=== PATIENT | female | born 1975 | race Hispanic/Latino ===

== ENCOUNTER 2018-05-18 19:23 | Emergency (ER) | payer OTHER ==
[2018-05-18] MEDS ORDERED: IPRATROPIUM/ALBUTEROL SULFATE 3 ML SOLUTION IH ONE (20:11)
[2018-05-18 20:20] LABS: BASOPHILS % (AUTO) 0.6 % (0.0-5.0); EOSINOPHILS % (AUTO) 2.1 % (0.0-8.0); HEMATOCRIT 42.3 % (36-48); LYMPHOCYTES % (AUTO) 20.4 % (21.0-51.0); MEAN CORPUSCULAR HEMOGLOBIN 33.1 pg (27.0-33.0); MEAN CORPUSCULAR HGB CONC 34.9 g/dL (32.0-36.0); MONOCYTES % (AUTO) 5.5 % (3.0-13.0); NEUTROPHILS % (AUTO) 71.4 % (40.0-77.0); NUCLEATED RED BLOOD CELLS 0.1 % (0.0-0.19); PLATELET COUNT (AUTO) 274 K/uL (130-400); RED BLOOD CELL COUNT(AUTO) 4.45 MIL/uL (4.00-5.50); RED CELL DISTRIBUTION WIDTH 12.2 % (11.0-15.5); WHITE BLOOD COUNT (AUTO) 9.4 K/uL (4.8-10.8)
[2018-05-18 20:33] LABS: CREATININE 0.8 mg/dL (0.5-1.5); POTASSIUM 3.8 mmol/L (3.5-5.1)
[2018-05-18 20:52] LABS: RAPID GROUP A STREP NEGATIVE (NEGATIVE)
[2018-05-18] MEDS ORDERED: MORPHINE SULFATE 2 MG/ML 1ML SYG ONE (20:57)
[2018-05-18] MEDS ORDERED: ONDANSETRON HCL 4 MG/2 ML VIAL ONE (20:57)
[2018-05-18 21:06] LABS: ACETONE,BLOOD NEGATIVE (NEGATIVE)
[2018-05-18] MEDS ORDERED: INSULIN HUMULIN R 100 UNIT/ML 3ML ONE (21:08)
[2018-05-18 21:12] LABS: ALANINE AMINOTRANSFERASE 31 U/L (12-78); ALBUMIN 3.1 g/dL (3.5-5.0); ASPARTATE AMINOTRANSFERASE 20 U/L (10-37); BILIRUBIN,DIRECT 0.1 mg/dL (0.0-0.3); BILIRUBIN,TOTAL 0.4 mg/dL (0.2-1.0); TOTAL PROTEIN, SERUM 7.8 g/dL (6.0-8.3)
== END 2018-05-18 22:16 | disposition home or self-care (01) ==
LOC: EDH 19:23
DX: J06.9 Acute upper respiratory infection, unspecified (principal); E11.65 Type 2 diabetes mellitus with hyperglycemia
CPT/HCPCS: 36415; 71046; 80048; 80076; 82009; 82948; 85025; 87040 ×2; 87804 ×2; 87880; 94640; 96374; 99285; J1815; J2405

== ENCOUNTER 2018-12-03 15:37 | Emergency (ER) | payer SELFPAY ==
[2018-12-03 16:02] LABS: BASOPHILS % (AUTO) 0.9 % (0.0-5.0); EOSINOPHILS % (AUTO) 3.9 % (0.0-8.0); HEMATOCRIT 40.4 % (36-48); LYMPHOCYTES % (AUTO) 23.6 % (21.0-51.0); MEAN CORPUSCULAR HGB CONC 36.7 g/dL (32.0-36.0); MEAN CORPUSCULAR VOLUME 95.5 fL (79-99); MONOCYTES % (AUTO) 6.2 % (3.0-13.0); NEUTROPHILS % (AUTO) 65.4 % (40.0-77.0); PLATELET COUNT (AUTO) 225 K/uL (130-400); RED BLOOD CELL COUNT(AUTO) 4.23 MIL/uL (4.00-5.50); WHITE BLOOD COUNT (AUTO) 7.6 K/uL (4.8-10.8)
[2018-12-03 16:21] LABS: ALBUMIN 2.8 g/dL (3.5-5.0); BILIRUBIN,TOTAL 0.4 mg/dL (0.2-1.0); CREATININE 1.1 mg/dL (0.5-1.5); POTASSIUM 3.7 mmol/L (3.5-5.1); TOTAL PROTEIN, SERUM 6.7 g/dL (6.0-8.3)
[2018-12-03] MEDS ORDERED: GABAPENTIN 300 MG CAPSULE ONE (16:27)
[2018-12-03] MEDS ORDERED: METFORMIN HCL 500 MG TABLET ONE (16:33)
== END 2018-12-03 17:03 | disposition home or self-care (01) ==
LOC: EDH 15:37
DX: E11.40 Type 2 diabetes mellitus with diabetic neuropathy, unspecified (principal); R55 Syncope and collapse
CPT/HCPCS: 36415; 80053; 84484; 85025; 93005

== ENCOUNTER 2020-02-11 16:32 | Inpatient (IN) | payer OTHER, SELFPAY ==
[~2020-02-11] VITALS: Ht 172.7 cm; Wt 148.3 kg
[2020-02-11] MEDS ORDERED: ASPIRIN 325 MG TABLET ONE (17:35)
[2020-02-11] MEDS ORDERED: LEVOFLOXACIN 500 MG/D5W 100 ML 100 ML ONE (17:35)
[2020-02-11 18:00] LABS: BASOPHILS % (AUTO) 0.2 % (0.0-5.0); EOSINOPHILS % (AUTO) 0.5 % (0.0-8.0); HEMATOCRIT 42.5 % (36-48); LYMPHOCYTES % (AUTO) 7.1 % (21.0-51.0); MEAN CORPUSCULAR HEMOGLOBIN 32.4 pg (27.0-33.0); MEAN CORPUSCULAR HGB CONC 35.1 g/dL (32.0-36.0); MEAN CORPUSCULAR VOLUME 92.4 fL (79-99); MONOCYTES % (AUTO) 4.7 % (3.0-13.0); PLATELET COUNT (AUTO) 214 K/uL (130-400); RED CELL DISTRIBUTION WIDTH 11.6 % (11.0-15.5); WHITE BLOOD COUNT (AUTO) 12.4 K/uL (4.8-10.8)
[2020-02-11] MEDS ORDERED: ACETAMINOPHEN 325 MG TAB ONE (18:05)
[2020-02-11 18:08] LABS: POTASSIUM 3.5 mmol/L (3.5-5.1)
[2020-02-11 18:12] LABS: INR 0.92 (0.85-1.15); PARTIAL THROMBOPLASTIN TIME 26.6 SEC (26.3-35.5)
[2020-02-11 18:13] LABS: ALBUMIN 3.2 g/dL (3.5-5.0); BILIRUBIN,TOTAL 0.8 mg/dL (0.2-1.0); TOTAL PROTEIN, SERUM 7.8 g/dL (6.0-8.3)
[2020-02-11 19:41] LABS: APPEARANCE,URINE Clear (CLEAR); BILIRUBIN,URINE Negative (NEGATIVE); COLOR,URINE Yellow (YELLOW); GLUCOSE, URINE (UA) >=1000 mg/dL (NEGATIVE); KETONES,URINE 15 mg/dL (NEGATIVE); LEUKOCYTE ESTERASE ,URINE Trace (NEGATIVE); NITRATE,URINE Positive (NEGATIVE); OCCULT BLOOD,URINE Negative (NEGATIVE); PROTEIN,URINE Negative (NEGATIVE)
[2020-02-11 20:01] LABS: BACTERIA,URINE Few /HPF (None Seen); MUCUS,URINE Few LPF (None Seen); SQUAMOUS EPITHELIAL CELL,UR Few /HPF (0-2)
[2020-02-11] MEDS ORDERED: INSULIN HUMULIN R 100 UNIT/ML 3ML ONE (20:22)
[2020-02-11] MEDS ORDERED: IOHEXOL-350 75 ML VIAL IV ONE (21:49)
[2020-02-11] MEDS ORDERED: IOHEXOL 350 MG/ML 100ML INFUS..BTL IV ONE (21:50)
[2020-02-11] MEDS ORDERED: ZOSYN 3.375GM+NS 50ML 50 ML IV ONE (23:39)
[2020-02-12] MEDS ORDERED: KETOROLAC TROMETHAMINE 30MG/ML ONE (01:32)
[2020-02-12] MEDS: SODIUM CHLORIDE 0.9% 1000ML 1,000 ML, 0.9 % SODIUM CHLORIDE 1,000 ML IV SCH ×2 (02:31)
[2020-02-12] MEDS ORDERED: DiphenhydrAMINE HCL 50 MG/ML VIAL IV PRN (02:45)
[2020-02-12] MEDS ORDERED: MORPHINE SULFATE 2 MG/ML 1ML SYG IV PRN (02:45)
[2020-02-12] MEDS ORDERED: MAG HYDROX/AL HYDROX/SIMETH ES 30 ML SUSP UDCUP PO PRN (02:45)
[2020-02-12] MEDS ORDERED: LACTULOSE 20 GM/30 ML UDCUP PO PRN (02:45)
[2020-02-12] MEDS ORDERED: VANCOMYCIN 1GM+NS 250ML 250 ML IV ONE (03:28)
[2020-02-12] MEDS ORDERED: CEFEPIME HCL 2 GM VIAL ONE ×2 (03:28→15:02)
[2020-02-12] MEDS ORDERED: VANCOMYCIN PROTOCOL PER PHARMACY IV SCH (04:15)
[2020-02-12] MEDS ORDERED: INSULIN GLARGINE 100 UNITS/ML 10 ML VIAL SQ ONE (04:45)
[2020-02-12 05:34] LABS: BASOPHILS % (AUTO) 0.2 % (0.0-5.0); EOSINOPHILS % (AUTO) 0.7 % (0.0-8.0); HEMATOCRIT 40.4 % (36-48); LYMPHOCYTES % (AUTO) 3.1 % (21.0-51.0); MEAN CORPUSCULAR HEMOGLOBIN 32.9 pg (27.0-33.0); MEAN CORPUSCULAR HGB CONC 34.9 g/dL (32.0-36.0); MEAN CORPUSCULAR VOLUME 94.2 fL (79-99); MONOCYTES % (AUTO) 2.8 % (3.0-13.0); NEUTROPHILS % (AUTO) 92.8 % (40.0-77.0); PLATELET COUNT (AUTO) 162 K/uL (130-400); RED BLOOD CELL COUNT(AUTO) 4.29 MIL/uL (4.00-5.50); RED CELL DISTRIBUTION WIDTH 11.7 % (11.0-15.5); WHITE BLOOD COUNT (AUTO) 12.9 K/uL (4.8-10.8)
[2020-02-12 05:55] LABS: ALBUMIN 2.6 g/dL (3.5-5.0); BILIRUBIN,TOTAL 1.1 mg/dL (0.2-1.0); CREATININE 0.9 mg/dL (0.5-1.5); MAGNESIUM 1.5 mg/dL (1.80-2.40); PHOSPHORUS 3.7 mg/dL (2.5-4.9); POTASSIUM 3.9 mmol/L (3.5-5.1); TOTAL PROTEIN, SERUM 6.7 g/dL (6.0-8.3)
[2020-02-12] MEDS ORDERED: MAGNESIUM 2GM PREMIX 50ML 50 ML IV SCH (07:45)
[2020-02-12] MEDS ORDERED: BENZONATATE 100 MG CAPSULE PO ONE ×2 (08:20→15:07)
[2020-02-12] MEDS ORDERED: FAMOTIDINE/PF 20 MG/2 ML VIAL IV ONE (08:21)
[2020-02-12] MEDS ORDERED: ENOXAPARIN SODIUM 40 MG/0.4 ML SYRINGE SQ ONE (08:21)
[2020-02-12] MEDS ORDERED: ACETAMINOPHEN 325 MG TAB ONE ×2 (08:34→15:11)
[2020-02-12] MEDS: ENOXAPARIN SODIUM 40 MG/0.4 ML SYRINGE SQ SCH (09:00)
[2020-02-12] MEDS: FAMOTIDINE/PF 20 MG/2 ML VIAL IV SCH ×2 (09:00→21:53)
[2020-02-12] MEDS: VANCOMYCIN 2.5 GM in SODIUM CHLORIDE 0.9% 500ML 500 ML IV ONE ×2 (12:45→22:52)
[2020-02-12] MEDS ORDERED: COMPOUND IV REFRIGERATED 1 EACH IVSOLN MISC PRN (13:00)
[2020-02-12] MEDS: BENZONATATE 100 MG CAPSULE PO SCH ×2 (14:00→21:52)
[2020-02-12] MEDS: CEFEPIME HCL 2 GM VIAL IVP SCH (15:00)
[2020-02-12] MEDS ORDERED: SODIUM CHLORIDE 0.9% 50 ML IV ONE (15:04)
[2020-02-12] MEDS: INSULIN LISPRO 100 UNIT/ML 3ML SQ SCH ×2 (16:30→21:55)
[2020-02-12] MEDS ORDERED: INSULIN HUMULIN R 100 UNIT/ML 3ML ONE (18:02)
[2020-02-12 19:00] VITALS: BP 124/78
[2020-02-12] MEDS ORDERED: INSULIN GLARGINE 100 UNITS/ML 10 ML VIAL SQ SCH (21:00)
[2020-02-12] MEDS ORDERED: VANCOMYCIN 1.25 GM in SODIUM CHLORIDE 0.9% 250 ML IV SCH (22:00)
[2020-02-13] MEDS: ACETAMINOPHEN 325 MG TAB PO PRN ×2 (00:07→08:15)
[2020-02-13 00:10] VITALS: BP 109/57
[2020-02-13 03:35] VITALS: BP 118/76
[2020-02-13] MEDS: CEFEPIME HCL 2 GM VIAL IVP SCH (03:43)
[2020-02-13] MEDS: INSULIN LISPRO 100 UNIT/ML 3ML SQ SCH ×7 (06:02→21:42)
[2020-02-13] MEDS: SODIUM CHLORIDE 0.9% 1000ML 1,000 ML, 0.9 % SODIUM CHLORIDE 1,000 ML IV SCH ×2 (06:09)
[2020-02-13 07:53] LABS: BASOPHILS % (AUTO) 0.2 % (0.0-5.0); EOSINOPHILS % (AUTO) 3.3 % (0.0-8.0); LYMPHOCYTES % (AUTO) 5.8 % (21.0-51.0); MEAN CORPUSCULAR HEMOGLOBIN 32.4 pg (27.0-33.0); MEAN CORPUSCULAR HGB CONC 34.6 g/dL (32.0-36.0); MEAN CORPUSCULAR VOLUME 93.7 fL (79-99); MONOCYTES % (AUTO) 5.1 % (3.0-13.0); NEUTROPHILS % (AUTO) 85.1 % (40.0-77.0); PLATELET COUNT (AUTO) 171 K/uL (130-400); RED BLOOD CELL COUNT(AUTO) 3.95 MIL/uL (4.00-5.50); RED CELL DISTRIBUTION WIDTH 11.7 % (11.0-15.5); WHITE BLOOD COUNT (AUTO) 10.6 K/uL (4.8-10.8)
[2020-02-13 08:00] VITALS: BP 127/68
[2020-02-13 08:00] LABS: HEMOGLOBIN A1C 11.5 % (4.0-6.0)
[2020-02-13 08:11] LABS: ALBUMIN 2.2 g/dL (3.5-5.0); BILIRUBIN,TOTAL 1.1 mg/dL (0.2-1.0); CREATININE 0.7 mg/dL (0.5-1.5); MAGNESIUM 1.8 mg/dL (1.80-2.40); PHOSPHORUS 1.7 mg/dL (2.5-4.9); POTASSIUM 3.4 mmol/L (3.5-5.1); TOTAL PROTEIN, SERUM 6.5 g/dL (6.0-8.3)
[2020-02-13] MEDS: ONDANSETRON HCL 4 MG/2 ML VIAL IVP PRN (08:14)
[2020-02-13 08:16] LABS: CRP QUANTITATIVE 345.1 mg/L (0.00-9.0)
[2020-02-13] MEDS: BENZONATATE 100 MG CAPSULE PO SCH ×3 (08:16→21:00)
[2020-02-13] MEDS: FAMOTIDINE/PF 20 MG/2 ML VIAL IV SCH ×2 (08:16→21:00)
[2020-02-13] MEDS: ENOXAPARIN SODIUM 40 MG/0.4 ML SYRINGE SQ SCH (08:17)
[2020-02-13] MEDS ORDERED: VANCOMYCIN 2 GM in SODIUM CHLORIDE 0.9% 500ML 500 ML IV SCH (10:23)
[2020-02-13] MEDS ORDERED: POTASSIUM CHLORIDE 10% ELIXIR 20 MEQ/15 ML UDCUP PO PRN (10:30)
[2020-02-13] MEDS ORDERED: LIDOCAINE HCL-MPF 1% 2ML VIAL IV PRN (10:30)
[2020-02-13] MEDS ORDERED: POTASSIUM CHLORIDE 20MEQ/100ML 100 ML IV PRN (10:30)
[2020-02-13] MEDS: SODIUM CHLORIDE 0.9% 1000ML 1,000 ML IV SCH (11:30)
[2020-02-13 12:00] VITALS: BP 108/80
[2020-02-13] MEDS ORDERED: PHARMACY COMMUNICATION MISC SCH (15:46)
[2020-02-13 16:00] VITALS: BP 111/70
--- NOTE | 2020-02-13 16:48 | NUR ---
NITA NOTE/IA UNABLE TO MEET WITH PATIENT, NEXT OF KIN CALLED, CRIS MAST. PER SON, PATIENT LIVES WITH HIM AND OTHER ADULT CHILD, INDEPENDENT WITH ADLS, NO USE OF OR PROVIDER SERVICES, HAS USE OF [facility] IN [place] AND FEELS SAFE FOR PATIENT TO BE DISCHARGED HOME ONCE MEDICALLY CLEARED FROM HOSPITAL. Addendum: 02/13/20 at 1650 by ARLEN PEACOCK RN CM Amended: Links added.
[2020-02-13 20:00] VITALS: BP 127/80
[2020-02-13] MEDS: INSULIN GLARGINE 100 UNITS/ML 10 ML VIAL SQ SCH (21:45)
[2020-02-14 00:04] VITALS: BP 104/54
[2020-02-14] MEDS: SODIUM CHLORIDE 0.9% 1000ML 1,000 ML IV SCH ×2 (01:42→05:29)
[2020-02-14] MEDS: VANCOMYCIN 1.25 GM in SODIUM CHLORIDE 0.9% 250 ML IV SCH ×4 (01:52→22:24)
[2020-02-14 04:04] VITALS: BP 117/68
[2020-02-14] MEDS: ACETAMINOPHEN 325 MG TAB PO PRN (05:28)
[2020-02-14] MEDS ORDERED: VANCOMYCIN 1.25 GM in SODIUM CHLORIDE 0.9% 250 ML IV SCH (07:03)
[2020-02-14 07:26] LABS: BASOPHILS % (AUTO) 0.3 % (0.0-5.0); EOSINOPHILS % (AUTO) 4.7 % (0.0-8.0); HEMATOCRIT 34.9 % (36-48); LYMPHOCYTES % (AUTO) 11.7 % (21.0-51.0); MEAN CORPUSCULAR HEMOGLOBIN 33.2 pg (27.0-33.0); MEAN CORPUSCULAR HGB CONC 35.2 g/dL (32.0-36.0); MEAN CORPUSCULAR VOLUME 94.3 fL (79-99); MONOCYTES % (AUTO) 6.8 % (3.0-13.0); NEUTROPHILS % (AUTO) 76.1 % (40.0-77.0); PLATELET COUNT (AUTO) 179 K/uL (130-400); RED CELL DISTRIBUTION WIDTH 11.8 % (11.0-15.5); WHITE BLOOD COUNT (AUTO) 7.6 K/uL (4.8-10.8)
[2020-02-14 07:59] LABS: ALBUMIN 2.1 g/dL (3.5-5.0); BILIRUBIN,TOTAL 0.6 mg/dL (0.2-1.0); CREATININE 0.6 mg/dL (0.5-1.5); MAGNESIUM 1.9 mg/dL (1.80-2.40); PHOSPHORUS 2.3 mg/dL (2.5-4.9); POTASSIUM 3.4 mmol/L (3.5-5.1); TOTAL PROTEIN, SERUM 6.2 g/dL (6.0-8.3)
[2020-02-14 08:00] VITALS: BP 120/61
[2020-02-14] MEDS: BENZONATATE 100 MG CAPSULE PO SCH ×3 (08:16→21:00)
[2020-02-14] MEDS: FAMOTIDINE/PF 20 MG/2 ML VIAL IV SCH ×2 (08:16→21:00)
[2020-02-14] MEDS: ENOXAPARIN SODIUM 40 MG/0.4 ML SYRINGE SQ SCH (08:16)
[2020-02-14] MEDS: INSULIN LISPRO 100 UNIT/ML 3ML SQ SCH ×7 (08:18→20:35)
[2020-02-14 12:00] VITALS: BP 123/74
[2020-02-14] MEDS: ONDANSETRON HCL 4 MG/2 ML VIAL IVP PRN ×2 (13:17→20:40)
[2020-02-14] MEDS: HYDROCODONE/ACETAMINOPHEN 5/325 MG TAB PO PRN ×3 (15:36→20:39)
[2020-02-14 16:00] VITALS: BP 117/93
[2020-02-14] MEDS: POTASSIUM CHLORIDE 20 MEQ ERTAB PO PRN (19:16)
[2020-02-14 20:08] VITALS: BP 118/60
[2020-02-14] MEDS: INSULIN GLARGINE 100 UNITS/ML 10 ML VIAL SQ SCH (20:38)
[2020-02-14] MEDS: ZOLPIDEM TARTRATE 5 MG TAB PO PRN (22:39)
[2020-02-15 00:08] VITALS: BP 135/79
[2020-02-15 04:08] VITALS: BP 100/50
[2020-02-15] MEDS: HYDROCODONE/ACETAMINOPHEN 5/325 MG TAB PO PRN (05:19)
[2020-02-15] MEDS: VANCOMYCIN 1.25 GM in SODIUM CHLORIDE 0.9% 250 ML IV SCH ×3 (05:21→22:06)
[2020-02-15] MEDS: ONDANSETRON HCL 4 MG/2 ML VIAL IVP PRN (06:28)
[2020-02-15 06:52] LABS: BASOPHILS % (AUTO) 0.4 % (0.0-5.0); EOSINOPHILS % (AUTO) 4.8 % (0.0-8.0); HEMATOCRIT 36.5 % (36-48); MEAN CORPUSCULAR HEMOGLOBIN 33.1 pg (27.0-33.0); MEAN CORPUSCULAR HGB CONC 35.1 g/dL (32.0-36.0); MEAN CORPUSCULAR VOLUME 94.3 fL (79-99); MONOCYTES % (AUTO) 8.4 % (3.0-13.0); NEUTROPHILS % (AUTO) 70.8 % (40.0-77.0); PLATELET COUNT (AUTO) 222 K/uL (130-400); RED BLOOD CELL COUNT(AUTO) 3.87 MIL/uL (4.00-5.50); RED CELL DISTRIBUTION WIDTH 11.8 % (11.0-15.5); WHITE BLOOD COUNT (AUTO) 6.9 K/uL (4.8-10.8)
[2020-02-15] MEDS: INSULIN LISPRO 100 UNIT/ML 3ML SQ SCH ×7 (07:30→21:54)
[2020-02-15 08:00] VITALS: BP 109/52
[2020-02-15 08:34] LABS: ALBUMIN 2.2 g/dL (3.5-5.0); BILIRUBIN,TOTAL 0.5 mg/dL (0.2-1.0); CREATININE 0.6 mg/dL (0.5-1.5); POTASSIUM 3.5 mmol/L (3.5-5.1); TOTAL PROTEIN, SERUM 6.7 g/dL (6.0-8.3)
[2020-02-15 09:23] LABS: CRP QUANTITATIVE 181.5 mg/L (0.00-9.0)
[2020-02-15] MEDS: BENZONATATE 100 MG CAPSULE PO SCH ×3 (09:36→22:05)
[2020-02-15] MEDS: FAMOTIDINE/PF 20 MG/2 ML VIAL IV SCH ×2 (09:37→22:05)
[2020-02-15] MEDS: POTASSIUM CHLORIDE 20 MEQ ERTAB PO PRN ×2 (09:37→16:54)
[2020-02-15] MEDS: ENOXAPARIN SODIUM 40 MG/0.4 ML SYRINGE SQ SCH (09:38)
[2020-02-15 11:38] VITALS: BP 126/71
[2020-02-15] MEDS ORDERED: PROMETHAZINE HCL 25 MG/ML 1ML AMPULE IM SCH (12:00)
[2020-02-15 16:00] VITALS: BP 119/61
[2020-02-15] MEDS: ACETAMINOPHEN 325 MG TAB PO PRN (17:04)
[2020-02-15 20:08] VITALS: BP 106/62
[2020-02-15] MEDS: INSULIN GLARGINE 100 UNITS/ML 10 ML VIAL SQ SCH (21:55)
[2020-02-15] MEDS: ZOLPIDEM TARTRATE 5 MG TAB PO PRN (22:05)
[2020-02-16] VITALS (7 sets, daily range): BP systolic 114–130; BP diastolic 57–73
[2020-02-16] MEDS: HYDROCODONE/ACETAMINOPHEN 5/325 MG TAB PO PRN (04:35)
[2020-02-16 05:27] LABS: BASOPHILS % (AUTO) 0.6 % (0.0-5.0); EOSINOPHILS % (AUTO) 4.5 % (0.0-8.0); LYMPHOCYTES % (AUTO) 17.1 % (21.0-51.0); MEAN CORPUSCULAR HEMOGLOBIN 33.1 pg (27.0-33.0); MEAN CORPUSCULAR HGB CONC 34.7 g/dL (32.0-36.0); MEAN CORPUSCULAR VOLUME 95.2 fL (79-99); MONOCYTES % (AUTO) 9.7 % (3.0-13.0); NEUTROPHILS % (AUTO) 67.4 % (40.0-77.0); PLATELET COUNT (AUTO) 231 K/uL (130-400); RED BLOOD CELL COUNT(AUTO) 3.78 MIL/uL (4.00-5.50); RED CELL DISTRIBUTION WIDTH 11.8 % (11.0-15.5); WHITE BLOOD COUNT (AUTO) 6.9 K/uL (4.8-10.8)
[2020-02-16 05:55] LABS: ALBUMIN 2.1 g/dL (3.5-5.0); BILIRUBIN,TOTAL 0.5 mg/dL (0.2-1.0); CREATININE 0.6 mg/dL (0.5-1.5); CRP QUANTITATIVE 151.7 mg/L (0.00-9.0); POTASSIUM 3.6 mmol/L (3.5-5.1); TOTAL PROTEIN, SERUM 6.7 g/dL (6.0-8.3)
[2020-02-16] MEDS: VANCOMYCIN 1.25 GM in SODIUM CHLORIDE 0.9% 250 ML IV SCH ×3 (06:02→21:54)
[2020-02-16] MEDS: FAMOTIDINE/PF 20 MG/2 ML VIAL IV SCH ×2 (10:48→21:47)
[2020-02-16] MEDS: BENZONATATE 100 MG CAPSULE PO SCH ×3 (10:49→21:47)
[2020-02-16] MEDS: ENOXAPARIN SODIUM 40 MG/0.4 ML SYRINGE SQ SCH (10:50)
[2020-02-16] MEDS: ACETAMINOPHEN 325 MG TAB PO PRN ×2 (10:58→21:49)
[2020-02-16] MEDS: INSULIN LISPRO 100 UNIT/ML 3ML SQ SCH ×5 (11:30→21:53)
[2020-02-16] MEDS: ZOLPIDEM TARTRATE 5 MG TAB PO PRN (21:49)
[2020-02-16] MEDS: INSULIN GLARGINE 100 UNITS/ML 10 ML VIAL SQ SCH (21:51)
[2020-02-17] MEDS: ACETAMINOPHEN 325 MG TAB PO PRN ×3 (00:22→21:21)
[2020-02-17 04:12] VITALS: BP 128/70
[2020-02-17] MEDS: HYDROCODONE/ACETAMINOPHEN 5/325 MG TAB PO PRN ×2 (05:35→14:48)
[2020-02-17] MEDS: VANCOMYCIN 1.25 GM in SODIUM CHLORIDE 0.9% 250 ML IV SCH ×2 (05:36→13:53)
[2020-02-17 05:50] LABS: BASOPHILS % (AUTO) 0.6 % (0.0-5.0); EOSINOPHILS % (AUTO) 4.8 % (0.0-8.0); HEMATOCRIT 35.6 % (36-48); LYMPHOCYTES % (AUTO) 21.7 % (21.0-51.0); MEAN CORPUSCULAR HEMOGLOBIN 32.6 pg (27.0-33.0); MEAN CORPUSCULAR HGB CONC 34.6 g/dL (32.0-36.0); MEAN CORPUSCULAR VOLUME 94.4 fL (79-99); NEUTROPHILS % (AUTO) 63.1 % (40.0-77.0); PLATELET COUNT (AUTO) 231 K/uL (130-400); RED BLOOD CELL COUNT(AUTO) 3.77 MIL/uL (4.00-5.50); RED CELL DISTRIBUTION WIDTH 11.6 % (11.0-15.5); WHITE BLOOD COUNT (AUTO) 7.2 K/uL (4.8-10.8)
[2020-02-17] MEDS: INSULIN LISPRO 100 UNIT/ML 3ML SQ SCH ×7 (06:27→21:00)
[2020-02-17 06:37] LABS: ALBUMIN 2.1 g/dL (3.5-5.0); BILIRUBIN,TOTAL 0.4 mg/dL (0.2-1.0); CREATININE 0.6 mg/dL (0.5-1.5); POTASSIUM 3.5 mmol/L (3.5-5.1); TOTAL PROTEIN, SERUM 6.5 g/dL (6.0-8.3)
[2020-02-17 08:52] VITALS: BP 136/71
[2020-02-17] MEDS: FAMOTIDINE/PF 20 MG/2 ML VIAL IV SCH ×2 (08:54→20:57)
[2020-02-17] MEDS: BENZONATATE 100 MG CAPSULE PO SCH ×3 (08:54→20:58)
[2020-02-17] MEDS: ENOXAPARIN SODIUM 40 MG/0.4 ML SYRINGE SQ SCH (08:55)
[2020-02-17] MEDS: ONDANSETRON HCL 4 MG/2 ML VIAL IVP PRN (10:14)
[2020-02-17 11:59] VITALS: BP 96/47
[2020-02-17 16:46] VITALS: BP 113/94
[2020-02-17 20:14] VITALS: BP 137/93
[2020-02-17] MEDS: GUAIFENESIN-DM 200/20 MG 10 ML PO PRN (20:58)
[2020-02-17] MEDS: INSULIN GLARGINE 100 UNITS/ML 10 ML VIAL SQ SCH (21:01)
[2020-02-17] MEDS: VANCOMYCIN 1.5 GM in SODIUM CHLORIDE 0.9% 250 ML IV SCH (21:03)
--- NOTE | 2020-02-17 21:05 | NUR ---
MEDS SHIFT ASSESSMENT DONE, PLEASE REFER TO CHART. PT CLAIMS OF HEADACHE. DUE MEDS ADMINISTERED, TYLENOL PO GIVEN FOR HEADACHE. KEPT COMFORTABLE IN BED. CALL LIGHT WITHIN REACH. WILL RE-ASSESS PT. Addendum: 02/18/20 at 0109 by PRISCILLA RUVALCABA RN RN Amended: Links added.
[2020-02-17] MEDS: ZOLPIDEM TARTRATE 5 MG TAB PO PRN (21:20)
[2020-02-17 23:55] VITALS: BP 135/67
--- NOTE | 2020-02-18 02:00 | NUR ---
ROUNDS PT RESTING WELL, FAIRLY ASLEEP. NO DISTRESS NOTED. KEPT UNDISTURBED FOR NOW. WILL MONITOR PT. CALL LIGHT WITHIN REACH.
[2020-02-18] MEDS: POTASSIUM CHLORIDE 20 MEQ ERTAB PO PRN ×2 (03:18→05:17)
[2020-02-18] MEDS: HYDROCODONE/ACETAMINOPHEN 5/325 MG TAB PO PRN (03:23)
[2020-02-18 03:26] VITALS: BP 131/78
--- NOTE | 2020-02-18 03:30 | NUR ---
MEDS PT COMPLAINTS OF HEADACHE, V/S STABLE. POTASSIUM GIVEN PO FOR POTASSIUM=3.5. NORCO ADMINISTERED FOR HEADACHE. WILL RE-ASSESS PT.
[2020-02-18] MEDS: VANCOMYCIN 1.5 GM in SODIUM CHLORIDE 0.9% 250 ML IV SCH ×3 (05:16→21:29)
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
[2020-02-18] MEDS: INSULIN LISPRO 100 UNIT/ML 3ML SQ SCH ×7 (06:06→20:00)
[2020-02-18 06:45] LABS: MAGNESIUM 1.8 mg/dL (1.80-2.40); POTASSIUM 3.7 mmol/L (3.5-5.1)
[2020-02-18 07:37] VITALS: BP 121/63
[2020-02-18] MEDS: ONDANSETRON HCL 4 MG/2 ML VIAL IVP PRN (08:28)
[2020-02-18] MEDS: ENOXAPARIN SODIUM 40 MG/0.4 ML SYRINGE SQ SCH (08:29)
[2020-02-18] MEDS: BENZONATATE 100 MG CAPSULE PO SCH ×3 (08:29→19:58)
[2020-02-18] MEDS: FAMOTIDINE/PF 20 MG/2 ML VIAL IV SCH ×2 (08:29→19:58)
[2020-02-18 10:32] VITALS: BP 96/62
[2020-02-18] MEDS: ACETAMINOPHEN 325 MG TAB PO PRN (14:00)
[2020-02-18 15:39] VITALS: BP 127/56
[2020-02-18 19:54] VITALS: BP 135/78
[2020-02-18] MEDS: INSULIN GLARGINE 100 UNITS/ML 10 ML VIAL SQ SCH (20:01)
[2020-02-18] MEDS: GUAIFENESIN-DM 200/20 MG 10 ML PO PRN (20:01)
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
[2020-02-18] MEDS: ZOLPIDEM TARTRATE 5 MG TAB PO PRN (21:29)
[2020-02-19 01:13] VITALS: BP 126/71
--- NOTE | 2020-02-19 02:00 | NUR ---
ROUNDS PT RESTING WELL, NO DISTRESS NOTED. KEPT UNDISTURBED FOR NOW. WILL MONITOR PT. CALL LIGHT WITHIN REACH.
[2020-02-19 03:58] VITALS: BP 134/73
[2020-02-19 05:14] LABS: BASOPHILS % (AUTO) 0.6 % (0.0-5.0); EOSINOPHILS % (AUTO) 4.9 % (0.0-8.0); HEMATOCRIT 37.3 % (36-48); LYMPHOCYTES % (AUTO) 18.4 % (21.0-51.0); MEAN CORPUSCULAR HEMOGLOBIN 32.2 pg (27.0-33.0); MEAN CORPUSCULAR VOLUME 94.7 fL (79-99); MONOCYTES % (AUTO) 8.1 % (3.0-13.0); NEUTROPHILS % (AUTO) 67.1 % (40.0-77.0); PLATELET COUNT (AUTO) 299 K/uL (130-400); RED BLOOD CELL COUNT(AUTO) 3.94 MIL/uL (4.00-5.50); RED CELL DISTRIBUTION WIDTH 11.4 % (11.0-15.5); WHITE BLOOD COUNT (AUTO) 7.8 K/uL (4.8-10.8)
[2020-02-19] MEDS: HYDROCODONE/ACETAMINOPHEN 5/325 MG TAB PO PRN (05:28)
--- NOTE | 2020-02-19 05:28 | NUR ---
PAIN PT COMPLAINTS OF HEADACHE. MEDICATED WITH NORCO PO. KEPT COMFORTABLE IN BED. WILL RE-ASSESS PT.
[2020-02-19 06:24] LABS: CREATININE 0.7 mg/dL (0.5-1.5); MAGNESIUM 1.9 mg/dL (1.80-2.40); POTASSIUM 3.7 mmol/L (3.5-5.1)
[2020-02-19] MEDS: VANCOMYCIN 1.5 GM in SODIUM CHLORIDE 0.9% 250 ML IV SCH ×3 (06:31→22:50)
[2020-02-19] MEDS: INSULIN LISPRO 100 UNIT/ML 3ML SQ SCH ×7 (06:34→21:38)
[2020-02-19 07:18] VITALS: BP 113/56
[2020-02-19] MEDS: FAMOTIDINE/PF 20 MG/2 ML VIAL IV SCH ×2 (08:52→20:12)
[2020-02-19] MEDS: BENZONATATE 100 MG CAPSULE PO SCH ×3 (08:52→20:13)
[2020-02-19] MEDS: ENOXAPARIN SODIUM 40 MG/0.4 ML SYRINGE SQ SCH (08:52)
[2020-02-19 10:40] VITALS: BP 119/61
[2020-02-19 15:30] VITALS: BP 127/71
[2020-02-19 19:37] LABS: INR 0.92 (0.85-1.15)
--- NOTE | 2020-02-19 20:00 | NUR ---
ASSESSMENT/TEACHING AWAKE, ALERT, OX3, NO SOB, NO C/O PAIN AT THIS TIME, EXTENSIVE DISCUSSION REGARDING PLAN OF CARE ,PLAN FOR PICC LINE, AND EXPECTED OUTCOME,PATIENT VERBALIZES UNDERSTANDING VIA TEACH BACK
[2020-02-19] MEDS: METOCLOPRAMIDE 10 MG/2 ML VIAL IVP SCH (20:12)
[2020-02-19 20:19] VITALS: BP 117/63
[2020-02-19] MEDS: INSULIN GLARGINE 100 UNITS/ML 10 ML VIAL SQ SCH (21:40)
--- NOTE | 2020-02-19 21:56 | NUR ---
PICC PICC LINE INSERTED BY YOKASTA MAST R.N. LEFT ARM , TOLERATED PROCEDURE WELL
--- NOTE | 2020-02-19 22:15 | NUR ---
5 FR 2 LUMEN PICC INSERTED TO LEFT BASILIC VEIN, USING ASEPTIC TECHNIQUE. CATHETER IS UNCUT 50 CM--45 CM INTERNALLY AND 5CM EXTERNAL CATHETER. BOTH LUMENS HAVE GOOD BLOOD RETURN AND FLUSHED EASILY AND CLAMPED. (+) VPS BULLEYE INDICATES PICC TIP IN LOWER 1/3 OF SVC OR AT CAVOATRIAL JUNCTION. PICC OK TO USE PER PROTOCOL.
[2020-02-20] VITALS (8 sets, daily range): BP systolic 113–160; BP diastolic 66–90
[2020-02-20] MEDS: VANCOMYCIN 1.5 GM in SODIUM CHLORIDE 0.9% 250 ML IV SCH ×3 (06:11→22:44)
[2020-02-20] MEDS: INSULIN LISPRO 100 UNIT/ML 3ML SQ SCH ×7 (06:24→19:46)
[2020-02-20] MEDS: HYDROCODONE/ACETAMINOPHEN 5/325 MG TAB PO PRN (11:42)
[2020-02-20] MEDS: METOCLOPRAMIDE 10 MG/2 ML VIAL IVP SCH ×2 (13:12→19:48)
[2020-02-20] MEDS: FAMOTIDINE/PF 20 MG/2 ML VIAL IV SCH ×2 (13:13→19:48)
[2020-02-20] MEDS: ENOXAPARIN SODIUM 40 MG/0.4 ML SYRINGE SQ SCH (13:13)
[2020-02-20] MEDS: BENZONATATE 100 MG CAPSULE PO SCH ×3 (13:13→19:48)
[2020-02-20] MEDS: INSULIN GLARGINE 100 UNITS/ML 10 ML VIAL SQ SCH (19:47)
--- NOTE | 2020-02-20 20:00 | NUR ---
ASSESSMENT PATIENT AWAKE, ALERT, OX3, NO SOB, NO C/O PAIN, PER PATIENT FEELS BETTER, RIGHT BREAST AREA CONTINUE WITH REDNESS, INDURATION, WARM TO TOUCH AND AREA OR NECROTIC, NO DRAINAGE NOTED, APPLY WARM COMPRESSES ORDERED X2, TEACH PATIENT PLAN OF CARE AND EXPECTED OUTCOME, PATIENT VERABALIZES UNDERSTANDING VIA TEACH BACK
[2020-02-21 03:37] VITALS: BP 114/60
[2020-02-21] MEDS: VANCOMYCIN 1.5 GM in SODIUM CHLORIDE 0.9% 250 ML IV SCH ×3 (06:10→22:04)
[2020-02-21] MEDS: INSULIN LISPRO 100 UNIT/ML 3ML SQ SCH ×7 (06:11→20:41)
[2020-02-21 08:00] VITALS: BP 125/77
[2020-02-21] MEDS: BENZONATATE 100 MG CAPSULE PO SCH ×3 (09:00→20:43)
[2020-02-21] MEDS: FAMOTIDINE/PF 20 MG/2 ML VIAL IV SCH ×2 (10:12→20:43)
[2020-02-21] MEDS: METOCLOPRAMIDE 10 MG/2 ML VIAL IVP SCH ×2 (10:12→20:43)
[2020-02-21] MEDS: ENOXAPARIN SODIUM 40 MG/0.4 ML SYRINGE SQ SCH (10:12)
[2020-02-21 11:00] VITALS: BP 134/83
[2020-02-21 16:00] VITALS: BP 148/85
[2020-02-21 19:54] VITALS: BP 158/91
[2020-02-21] MEDS: INSULIN GLARGINE 100 UNITS/ML 10 ML VIAL SQ SCH (20:40)
--- NOTE | 2020-02-21 22:26 | NUR ---
ASSESSMENT PATIENT AWAKE,ALERT,OX3 NO SOB,NO C/O PAIN, NO SOB OR PAIN, RIGHT BREAST/CHEST WALL WITH AREA OF NECROTIC , LESS INDURATION, REDNESS AND SWELLING,PER PATIENT FEELS LESS PAINFUL AND DISCOMFORT, TEACH PATIENT PLAN OF CARE AND EXPECTED OUTCOME, PATIENT VERBALIZES UNDERSTanding via teach back
[2020-02-21 23:21] VITALS: BP 136/74
[2020-02-22 03:27] VITALS: BP 126/66
[2020-02-22] MEDS: VANCOMYCIN 1.5 GM in SODIUM CHLORIDE 0.9% 250 ML IV SCH ×3 (06:10→21:38)
[2020-02-22] MEDS: INSULIN LISPRO 100 UNIT/ML 3ML SQ SCH ×7 (06:11→21:36)
[2020-02-22] MEDS: ACETAMINOPHEN 325 MG TAB PO PRN (06:20)
[2020-02-22 08:00] VITALS: BP 130/80
[2020-02-22] MEDS: FAMOTIDINE/PF 20 MG/2 ML VIAL IV SCH ×2 (08:53→20:32)
[2020-02-22] MEDS: ENOXAPARIN SODIUM 40 MG/0.4 ML SYRINGE SQ SCH ×2 (08:53→20:32)
[2020-02-22] MEDS: BENZONATATE 100 MG CAPSULE PO SCH ×3 (08:53→20:32)
[2020-02-22] MEDS: METOCLOPRAMIDE 10 MG/2 ML VIAL IVP SCH ×2 (08:53→20:32)
[2020-02-22 11:00] VITALS: BP 118/70
[2020-02-22 16:00] VITALS: BP 122/71
[2020-02-22 20:00] VITALS: BP 124/77
--- NOTE | 2020-02-22 21:00 | NUR ---
PT IS AWARE OF PROCEDURE:RIGHT BREAST I&D DUE TO ABSCESS. NO DISTRESS NOTED. AMBULATING. ROOM AIR. PT HAS PICC LINE. LABS ORDERED FOR THE AM. CONSENT SIGNED. PT GIVEN A MEAL BEFORE BED. PROCEDURE SCHEDULED FOR NOON.
[2020-02-22] MEDS: INSULIN GLARGINE 100 UNITS/ML 10 ML VIAL SQ SCH (21:37)
[2020-02-22 23:24] VITALS: BP 111/75
[2020-02-23] VITALS (18 sets, daily range): BP systolic 104–126; BP diastolic 59–76
[2020-02-23] MEDS: INSULIN LISPRO 100 UNIT/ML 3ML SQ SCH ×7 (05:32→21:11)
[2020-02-23] MEDS: VANCOMYCIN 1.5 GM in SODIUM CHLORIDE 0.9% 250 ML IV SCH ×2 (06:02→18:05)
[2020-02-23 06:52] LABS: BASOPHILS % (AUTO) 0.5 % (0.0-5.0); EOSINOPHILS % (AUTO) 4.6 % (0.0-8.0); HEMATOCRIT 38.2 % (36-48); LYMPHOCYTES % (AUTO) 22.4 % (21.0-51.0); MEAN CORPUSCULAR HEMOGLOBIN 32.6 pg (27.0-33.0); MEAN CORPUSCULAR VOLUME 95.7 fL (79-99); MONOCYTES % (AUTO) 7.6 % (3.0-13.0); NEUTROPHILS % (AUTO) 64.6 % (40.0-77.0); PLATELET COUNT (AUTO) 266 K/uL (130-400); RED BLOOD CELL COUNT(AUTO) 3.99 MIL/uL (4.00-5.50); RED CELL DISTRIBUTION WIDTH 11.3 % (11.0-15.5); WHITE BLOOD COUNT (AUTO) 7.8 K/uL (4.8-10.8)
[2020-02-23 07:05] LABS: INR 0.96 (0.85-1.15); PROTHROMBIN TIME 10.4 SEC (9.6-11.6)
[2020-02-23 07:32] LABS: CREATININE 0.8 mg/dL (0.5-1.5)
[2020-02-23] MEDS: METOCLOPRAMIDE 10 MG/2 ML VIAL IVP SCH ×2 (09:00→21:06)
[2020-02-23] MEDS: BENZONATATE 100 MG CAPSULE PO SCH ×3 (09:00→21:15)
[2020-02-23] MEDS: FAMOTIDINE/PF 20 MG/2 ML VIAL IV SCH ×2 (09:00→21:06)
[2020-02-23] MEDS: ENOXAPARIN SODIUM 40 MG/0.4 ML SYRINGE SQ SCH ×2 (09:00→21:05)
[2020-02-23] MEDS ORDERED: LIDOCAINE HCL 1% 20 ML VIAL ONE (12:11)
[2020-02-23] MEDS ORDERED: LIDOCAINE PF 2% 5ML ABBOJECT ONE (12:11)
[2020-02-23] MEDS ORDERED: MIDAZOLAM HCL 1 MG/ML 2ML VIAL ONE (12:11)
[2020-02-23] MEDS ORDERED: BUPIVACAINE/PF 0.5% 30ML VIAL ONE (12:11)
[2020-02-23] MEDS ORDERED: SUCCINYLCHOLINE 200MG/10ML SYR ONE (12:11)
[2020-02-23] MEDS ORDERED: ROCURONIUM 10MG/1ML SYR 10 MG/ML ML ONE (12:12)
[2020-02-23] MEDS ORDERED: ONDANSETRON HCL 4 MG/2 ML VIAL ONE (12:12)
[2020-02-23] MEDS ORDERED: PROPOFOL 10 MG/ML 20ML VIAL IV ONE ×2 (12:12→13:14)
[2020-02-23] MEDS ORDERED: FENTANYL CITRATE PF 50 MCG/1 ML 2ML VIAL ONE (12:14)
[2020-02-23] MEDS ORDERED: EPHEDRINE SULFATE 50 MG/ML AMPULE ONE (13:02)
[2020-02-23] MEDS ORDERED: KETOROLAC TROMETHAMINE 30MG/ML ONE (13:31)
[2020-02-23] MEDS ORDERED: MEPERIDINE-PF 25 MG/ML SYG ONE (13:50)
[2020-02-23] MEDS: ACETAMINOPHEN 325 MG TAB PO PRN (21:05)
[2020-02-23] MEDS: INSULIN GLARGINE 100 UNITS/ML 10 ML VIAL SQ SCH (21:09)
[2020-02-24] VITALS: BP 105/60
[2020-02-24] MEDS: HYDROCODONE/ACETAMINOPHEN 5/325 MG TAB PO PRN ×3 (03:10→16:36)
[2020-02-24 04:00] VITALS: BP 118/71
[2020-02-24 05:19] LABS: BASOPHILS % (AUTO) 0.5 % (0.0-5.0); EOSINOPHILS % (AUTO) 3.9 % (0.0-8.0); HEMATOCRIT 36.7 % (36-48); LYMPHOCYTES % (AUTO) 20.1 % (21.0-51.0); MEAN CORPUSCULAR HGB CONC 34.6 g/dL (32.0-36.0); MEAN CORPUSCULAR VOLUME 95.3 fL (79-99); MONOCYTES % (AUTO) 8.4 % (3.0-13.0); NEUTROPHILS % (AUTO) 66.8 % (40.0-77.0); PLATELET COUNT (AUTO) 256 K/uL (130-400); RED BLOOD CELL COUNT(AUTO) 3.85 MIL/uL (4.00-5.50); RED CELL DISTRIBUTION WIDTH 11.5 % (11.0-15.5); WHITE BLOOD COUNT (AUTO) 7.6 K/uL (4.8-10.8)
[2020-02-24 05:36] LABS: CREATININE 0.9 mg/dL (0.5-1.5); CRP QUANTITATIVE 36.4 mg/L (0.00-9.0); POTASSIUM 3.8 mmol/L (3.5-5.1)
[2020-02-24] MEDS: INSULIN LISPRO 100 UNIT/ML 3ML SQ SCH ×7 (07:30→21:21)
[2020-02-24 08:00] VITALS: BP 130/84
[2020-02-24] MEDS ORDERED: VANCOMYCIN PROTOCOL PER PHARMACY IV SCH (09:15)
[2020-02-24] MEDS: FAMOTIDINE/PF 20 MG/2 ML VIAL IV SCH ×2 (09:39→21:28)
[2020-02-24] MEDS: BENZONATATE 100 MG CAPSULE PO SCH ×3 (09:40→21:28)
[2020-02-24] MEDS: METOCLOPRAMIDE 10 MG/2 ML VIAL IVP SCH ×2 (09:40→21:28)
[2020-02-24] MEDS: ENOXAPARIN SODIUM 40 MG/0.4 ML SYRINGE SQ SCH ×2 (09:41→21:19)
[2020-02-24 12:00] VITALS: BP 127/70
[2020-02-24] MEDS: VANCOMYCIN 1.5 GM in SODIUM CHLORIDE 0.9% 250 ML IV SCH ×2 (15:35→22:00)
[2020-02-24] MEDS ORDERED: ALTEPLASE 2 MG/VIAL IVCATH ONE (15:45)
[2020-02-24] MEDS ORDERED: ALTEPLASE 2 MG/VIAL IVCATH SCH ×2 (15:45→18:45)
[2020-02-24 15:51] VITALS: BP 131/82
--- NOTE | 2020-02-24 18:59 | NUR ---
dressing right breast changed; pt premedicated with norco; pt has a approx. 1 " incision line and is approx. 1" deep with packing in place; immediate surrounding skin is red but much improved than prior to surgery; wet to dry gauze packing gauze placed using normal saline then abd pad and gauze placed and medipore tape; pt tong. proc. well.
[2020-02-24 19:00] VITALS: BP 129/74
[2020-02-24] MEDS: INSULIN GLARGINE 100 UNITS/ML 10 ML VIAL SQ SCH (21:27)
[2020-02-24] MEDS ORDERED: VANCOMYCIN 1GM+NS 250ML 500 ML IV ONE (23:51)
[2020-02-25] VITALS (7 sets, daily range): BP systolic 106–130; BP diastolic 52–79
[2020-02-25] MEDS: HYDROCODONE/ACETAMINOPHEN 5/325 MG TAB PO PRN ×2 (00:15→16:56)
[2020-02-25 06:21] LABS: BASOPHILS % (AUTO) 0.6 % (0.0-5.0); EOSINOPHILS % (AUTO) 3.3 % (0.0-8.0); HEMATOCRIT 37.5 % (36-48); MEAN CORPUSCULAR HEMOGLOBIN 31.7 pg (27.0-33.0); MEAN CORPUSCULAR HGB CONC 33.3 g/dL (32.0-36.0); MEAN CORPUSCULAR VOLUME 95.2 fL (79-99); MONOCYTES % (AUTO) 8.5 % (3.0-13.0); NEUTROPHILS % (AUTO) 59.2 % (40.0-77.0); PLATELET COUNT (AUTO) 280 K/uL (130-400); RED BLOOD CELL COUNT(AUTO) 3.94 MIL/uL (4.00-5.50); RED CELL DISTRIBUTION WIDTH 11.2 % (11.0-15.5); WHITE BLOOD COUNT (AUTO) 6.9 K/uL (4.8-10.8)
[2020-02-25 06:43] LABS: CREATININE 0.8 mg/dL (0.5-1.5); CRP QUANTITATIVE 38.4 mg/L (0.00-9.0); POTASSIUM 4.1 mmol/L (3.5-5.1)
[2020-02-25] MEDS: BENZONATATE 100 MG CAPSULE PO SCH ×3 (08:47→21:00)
[2020-02-25] MEDS: FAMOTIDINE/PF 20 MG/2 ML VIAL IV SCH ×2 (08:47→22:29)
[2020-02-25] MEDS: METOCLOPRAMIDE 10 MG/2 ML VIAL IVP SCH ×2 (08:48→22:29)
[2020-02-25] MEDS: ENOXAPARIN SODIUM 40 MG/0.4 ML SYRINGE SQ SCH ×2 (08:48→22:30)
[2020-02-25] MEDS: VANCOMYCIN 1.5 GM in SODIUM CHLORIDE 0.9% 250 ML IV SCH ×3 (09:00→22:00)
[2020-02-25] MEDS: INSULIN LISPRO 100 UNIT/ML 3ML SQ SCH ×6 (11:30→22:33)
--- NOTE | 2020-02-25 12:18 | NUR ---
RDSCREEN - LOS X 14 Pt admitted with Sepsis d/t UTI. Pt states RD call is first call since admit. Pt tolerating 75gm CC diet order. Pt reports hunger and small portions at meal times. Pt reports nausea with medications. No food allergies. Pt dislikes coffee. BG 165, Alb 2.1. Obesity Class III (BMI 49.0). S/P ID for R-Breast Cellulitis and abscess. PICC line in place. Positive for COVID-19. Recommend Double portion vegetables and protein at mealtimes Recommend HS snack RD to continue to monitor. Please notify RD as additional nutrition concerns arise. Thank you. Addendum: 02/25/20 at [address] RD Amended: Links added.
--- NOTE | 2020-02-25 16:05 | NUR ---
PT STATES SHE WOULD LIKE A FEMALE NURSE TO CHANGE HER DRSG. WHEN ASKED IF SHE WAS UPSET, SHE STATED SHE JUST DIDN'T FEEL WELL
--- NOTE | 2020-02-25 16:32 | NUR ---
REPORT GIVEN TO FRIDA BAIG. PT CHOSE TO HAVE A FEMALE NURSE CARE DUE TO THE WOUND ON HER RT BREAST. THIS IS UNDERSTANDABLE.
[2020-02-25] MEDS: INSULIN GLARGINE 100 UNITS/ML 10 ML VIAL SQ SCH (22:30)
--- NOTE | 2020-02-25 23:09 | NUR ---
Pts last sneed trough = 20.7, dose held and [employer] Judy Davis informed; vanc trough lab input and will be drawn at 0400 for next dose. Miguel RN
[2020-02-26 04:12] VITALS: BP 128/79
--- NOTE | 2020-02-26 05:00 | NUR ---
Pts vanc trough was 7.8; dose administered at this time. Miguel, RN
[2020-02-26] MEDS: VANCOMYCIN 1.5 GM in SODIUM CHLORIDE 0.9% 250 ML IV SCH (05:39)
[2020-02-26] MEDS: INSULIN LISPRO 100 UNIT/ML 3ML SQ SCH ×7 (07:04→22:44)
[2020-02-26 08:40] VITALS: BP 122/65
[2020-02-26] MEDS: ACETAMINOPHEN 325 MG TAB PO PRN ×2 (10:00→21:46)
[2020-02-26] MEDS: FAMOTIDINE/PF 20 MG/2 ML VIAL IV SCH ×2 (10:36→22:35)
[2020-02-26] MEDS: ENOXAPARIN SODIUM 40 MG/0.4 ML SYRINGE SQ SCH ×2 (10:36→22:33)
[2020-02-26] MEDS: METOCLOPRAMIDE 10 MG/2 ML VIAL IVP SCH ×2 (10:36→22:35)
[2020-02-26] MEDS: BENZONATATE 100 MG CAPSULE PO SCH ×3 (10:36→22:33)
[2020-02-26 11:21] VITALS: BP 122/71
[2020-02-26] MEDS: VANCOMYCIN 1.75 GM in SODIUM CHLORIDE 0.9% 250 ML IV SCH ×2 (15:12→22:37)
[2020-02-26 16:47] VITALS: BP 119/64
[2020-02-26 20:43] VITALS: BP 112/75
[2020-02-26] MEDS: INSULIN GLARGINE 100 UNITS/ML 10 ML VIAL SQ SCH (22:41)
[2020-02-26 23:26] VITALS: BP 132/81
[2020-02-27 03:31] VITALS: BP 124/78
[2020-02-27] MEDS: VANCOMYCIN 1.75 GM in SODIUM CHLORIDE 0.9% 250 ML IV SCH (05:31)
[2020-02-27] MEDS: INSULIN LISPRO 100 UNIT/ML 3ML SQ SCH ×7 (07:29→21:15)
[2020-02-27] MEDS: FAMOTIDINE/PF 20 MG/2 ML VIAL IV SCH ×2 (08:26→21:11)
[2020-02-27] MEDS: METOCLOPRAMIDE 10 MG/2 ML VIAL IVP SCH ×2 (08:26→21:11)
[2020-02-27] MEDS: ENOXAPARIN SODIUM 40 MG/0.4 ML SYRINGE SQ SCH ×2 (08:27→21:11)
[2020-02-27] MEDS: BENZONATATE 100 MG CAPSULE PO SCH ×3 (08:27→21:11)
[2020-02-27 08:30] VITALS: BP 125/67
[2020-02-27 11:32] VITALS: BP 115/68
[2020-02-27 15:40] VITALS: BP 116/66
--- NOTE | 2020-02-27 18:38 | NUR ---
vANCO LEVEL PT VANCO WAS CRITICAL , RESULT WAS FAX TO PHARMACY. VANCO WAS HELD FOR TODAY. PT VSS. DRESSING CHANGES TO PICC LINE PERFORMED. OOB WITH MINIMAL ASSISTANCE. NO ACUTE EVENTS FOR THIS SHIFT
[2020-02-27 20:37] VITALS: BP 117/73
[2020-02-27] MEDS: INSULIN GLARGINE 100 UNITS/ML 10 ML VIAL SQ SCH (21:14)
[2020-02-27 23:58] VITALS: BP 113/66
[2020-02-28 03:39] VITALS: BP 111/69
[2020-02-28] MEDS: INSULIN LISPRO 100 UNIT/ML 3ML SQ SCH ×6 (06:42→16:32)
[2020-02-28 08:31] VITALS: BP 112/75
[2020-02-28] MEDS: METOCLOPRAMIDE 10 MG/2 ML VIAL IVP SCH (08:48)
[2020-02-28] MEDS: BENZONATATE 100 MG CAPSULE PO SCH ×2 (08:49→13:44)
[2020-02-28] MEDS: ENOXAPARIN SODIUM 40 MG/0.4 ML SYRINGE SQ SCH (08:49)
[2020-02-28] MEDS: FAMOTIDINE/PF 20 MG/2 ML VIAL IV SCH (08:50)
[2020-02-28] MEDS ORDERED: ZYVOX 600 MG TAB PO SCH (11:30)
[2020-02-28 12:20] VITALS: BP 108/65
[2020-02-28] MEDS ORDERED: INSU3INS3 SQ (12:42)
[2020-02-28] MEDS ORDERED: INSU200I SQ (12:42)
[2020-02-28] MEDS ORDERED: METO5TAB2 PO (12:42)
[2020-02-28 15:54] VITALS: BP 114/85
[2020-02-28] MEDS ORDERED: METOCLOPRAMIDE 5 MG TABLET PO SCH (16:30)
[2020-02-28] MEDS: HYDROCODONE/ACETAMINOPHEN 5/325 MG TAB PO PRN (17:04)
--- NOTE | 2020-02-28 18:38 | NUR ---
Discharge note pt son was educated on wound care via physical instruction. patient and family verbalize understanding how to perform wound care to Right breast at home. wound care instruction given with discharge paperwork.prescription given and pharmacy updated. pt verbalized and sign written discharge instruction. PIcc line removed. pressure dressing applied. no bleeding noted. tele monitor returned to tele room. pt transprted via wheelchair with RN . pt d/c home with private vehicle and son.
== END 2020-02-28 18:40 | disposition home or self-care (01) | DRG 853 ==
LOC: EDH 16:32 → EDHIP 16:33 → 3BH 02-12 19:04 → 4CH 02-24 13:07 → 4DH 02-26 17:45 → 2DH 02-27 11:19
PROVIDERS: ADMIT Internal Medicine; ATTEND Internal Medicine
PROC: 0H9T0ZZ Drainage of Right Breast, Open Approach (ICD-10-PCS; principal; 2020-02-23 13:07)
DX: A41.02 Sepsis due to Methicillin resistant Staphylococcus aureus (principal); U07.1 COVID-19; M72.6 Necrotizing fasciitis; N39.0 Urinary tract infection, site not specified; Z68.42 Body mass index [BMI] 45.0-49.9, adult; J98.11 Atelectasis; N61.0 Mastitis without abscess; L08.9 Local infection of the skin and subcutaneous tissue, unspecified; B95.1 Streptococcus, group B, as the cause of diseases classified elsewhere; N61.1 Abscess of the breast and nipple; E66.01 Morbid (severe) obesity due to excess calories; E11.65 Type 2 diabetes mellitus with hyperglycemia; I11.9 Hypertensive heart disease without heart failure; K76.0 Fatty (change of) liver, not elsewhere classified; K80.20 Calculus of gallbladder without cholecystitis without obstruction; Z74.01 Bed confinement status; Z79.4 Long term (current) use of insulin; Z98.891 History of uterine scar from previous surgery
CPT/HCPCS: 36415; 70450; 70490; 71045; 71275; 76642; 80048; 80053; 80202; 81001; 81025; 82550; 82728; 82948; 83036; 83605; 83615; 83690; 83735; 84100; 84132; 84145; 84484; 85025; 85378; 85610; 85730; 86140; 87040; 87070; 87076; 87077; 87088; 87186; 87205; 87426; 87486; 87581; 87633; 87798; 87804; 93005; 93306; 93356; 99291; C1894; G0378; J0330; J0692; J1650; J1815; J1885; J1956; J2001; J2175; J2250; J2405; J2543; J2550; J2704; J2765; J2997; J3010; J3370; J3475; J3490; J7030; J7040; J7050; Q9967; U0003